=== PATIENT | female | born 1995 | race Caucasian/White ===

== ENCOUNTER → 2017-07-13 | Outpatient (CLI) | payer OTHER ==
[2017-07-13 16:11] LABS: THYROID STIMULATING HORMONE 5.89 uIu/ml (0.300-4.500)
== END | disposition home or self-care (01) ==
LOC: C.LAB1850 14:22
PROVIDERS: ATTEND Nurse Practitioner Adult Health
DX: E83.9 Disorder of mineral metabolism, unspecified (principal); E06.3 Autoimmune thyroiditis

== ENCOUNTER 2017-08-19 13:23 | Emergency (ER) | payer BC ==
[~2017-08-19] VITALS: Ht 162.6 cm; Wt 93.0 kg
[2017-08-19 13:28] VITALS: TEMP 36.2; Ht 162.6 cm; Wt 93.0 kg
[2017-08-19] MEDS ORDERED: CITA10TA8 PO (14:12)
[2017-08-19] MEDS ORDERED: LEVO175T PO (14:12)
--- NOTE | 2017-08-19 14:12 | EMERGENCY ROOM VISIT NOTE ---
ED Visit Note First contact with patient: 13:39 Resident Physician Supervision Note: I was present with Dr. Bajwa during the history and exam. I discussed the case with the resident and agree with the findings and plan as documented in the note. Documented By: Noam Cantrell
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
[2017-08-19 15:37] LABS: HEMATOCRIT 40.2 % (37-47); MEAN CELL VOLUME 90.1 fL (80-100); MEAN CORPUSCULAR HEMOGLOBIN 30.7 pg (25-34); MEAN CORPUSCULAR HGB CONC 34.1 g/dl (32-36); PLATELET COUNT 235 K/uL (130-400); RED BLOOD COUNT 4.46 M/uL (4.2-5.4); WHITE BLOOD COUNT 7.83 K/uL (4.8-10.8)
[2017-08-19 16:01] LABS: BUN/CREATININE RATIO 22.4 (10-20); CALCIUM 9.5 mg/dl (8.5-10.1); CREATININE 0.67 mg/dl (0.60-1.20); POTASSIUM 4.3 mmol/L (3.5-5.1)
[2017-08-19 16:32] LABS: LYME DISEASE AB IGG NEG (NEG); LYME DISEASE AB IGM NEG (NEG)
[2017-08-19 17:15] VITALS: BP 150/81; PULSE 58; O2SAT 99
--- NOTE | 2017-08-19 17:23 | DIAGNOSTIC IMAGING REPORT ---
BRAIN W/O FOR MS CLINICAL HISTORY: 22 years-old Female presenting with perioral numbness, numbness and tingling in the head, irregular sensations in the ear and throat for one week. TECHNIQUE: Multisequence, multiplanar MR imaging of the brain was performed without the use of intravenous contrast. IV contrast: None. COMPARISON: CT head performed on 08/26/2015. FINDINGS: Ventricles and sulci normal in size. Brain parenchyma normal in appearance with preserved to-white differentiation. No mass effect or midline shift. No restricted diffusion to suggest acute ischemia. No hemorrhage. No extra-axial fluid collection. T2 skull base flow voids preserved. 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 Bone marrow signal intensity within the calvarium within normal limits. IMPRESSION: 1. No acute intracranial abnormality. No white matter abnormalities. 2. 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 Electronically signed by: Jeffery Sexton M.D. 08/19/2017 5:21 PM Dictated Date/Time: 08/19/2017 5:16 PM
== END 2017-08-19 18:02 | disposition home or self-care (01) ==
LOC: C.EDB 13:24
DX: R20.0 Anesthesia of skin (principal)

== ENCOUNTER → 2017-12-29 | Outpatient (CLI) | payer OTHER ==
[~2017-12-29] MED LIST: CITA10TA8 PO; LEVO175T PO
== END | disposition home or self-care (01) ==
LOC: C.LABSPEC 17:40
PROVIDERS: ATTEND Physician Assistant
DX: R10.2 Pelvic and perineal pain (principal)

== ENCOUNTER → 2018-01-18 | Outpatient (CLI) | payer OTHER ==
[2018-01-18 17:59] LABS: LUTEINIZING HORMONE 8.43 IU/L; PROLACTIN 11.91 ng/mL
[2018-01-18 18:00] LABS: FOLLICLE STIMULAT HORMONE 6.27 IU/L
== END | disposition home or self-care (01) ==
LOC: C.LAB1850 16:43
PROVIDERS: ATTEND Physician Assistant
DX: N92.6 Irregular menstruation, unspecified (principal)